=== PATIENT | male | born 1990 | race Two or more races ===

== ENCOUNTER 2020-10-01 22:33 | Emergency (ER) | payer BC ==
--- NOTE | 2020-10-01 23:12 | EDM.PDOC ---
ED HPI GENERAL MEDICAL PROBLEM - General Chief Complaint: Chest Pain Stated Complaint: CHEST PAIN Time Seen by Provider: 10/01/20 22:35 Source of Information: Reports: Patient History Limitations: Reports: No Limitations - History of Present Illness INITIAL COMMENTS - FREE TEXT/NARRATIVE: Patient is a 30-year-old male who presents today for sensation in his chest that been present for the past few years. Patient dates that he started on oral rake around the time and he moved in [place] not follow with a doctor in the past 2 to 3 years. States occasionally gets these funny sensation in his chest and his left arm denies having any rashes. Patient denies any shortness of breath fever chills nausea vomiting. - Related Data Allergies Allergy/AdvReac Type Severity Reaction Status Date / Time No Known Allergies Allergy Verified 10/01/20 22:38 Home Meds: Home Meds . [No Known Home Meds] 10/01/20 [History] Past Medical History - Past Health History Medical/Surgical History: Denies Medical/Surgical History Social & Family History - Tobacco Use Tobacco Use Status *Q: Never Tobacco User - Recreational Drug Use Recreational Drug Use: No ED ROS GENERAL - Review of Systems Review Of Systems: See Below Constitutional: Reports: No Symptoms HEENT: Reports: No Symptoms Respiratory: Reports: No Symptoms Cardiovascular: Reports: Chest Pain Endocrine: Reports: No Symptoms GI/Abdominal: Reports: No Symptoms : Reports: No Symptoms Musculoskeletal: Reports: No Symptoms Skin: Reports: No Symptoms Neurological: Reports: No Symptoms Psychiatric: Reports: No Symptoms Hematologic/Lymphatic: Reports: No Symptoms Immunologic: Reports: No Symptoms ED EXAM, GENERAL - Physical Exam Exam: See Below Exam Limited By: No Limitations General Appearance: Alert, WD/WN, No Apparent Distress Eye Exam: Bilateral Eye: EOMI, PERRL Head: Atraumatic Neck: Normal Inspection, Supple, Non-Tender Respiratory/Chest: No Respiratory Distress, Lungs Clear, Normal Breath Sounds Cardiovascular: Normal Peripheral Pulses, Regular Rate, Rhythm, No Edema GI/Abdominal: Normal Bowel Sounds, Soft, Non-Tender Extremities: Normal Inspection, Normal Range of Motion Neurological: Alert, Oriented, CN II-XII Intact, Normal Cognition, Normal Gait #1 Interpretation EKG Date: 10/01/20 Time: 10:36 Rhythm: Other (sinus tachy) Rate (Beats/Min): 115 ST-T: Normal Course - Vital Signs Last Recorded V/S: Last Vital Signs Temp 97 F 10/01/20 22:36 Pulse 122 H 10/01/20 22:36 Resp 20 10/01/20 22:36 BP 128/80 10/01/20 22:36 Pulse Ox 100 10/01/20 22:36 - Orders/Labs/Meds Orders: Active Orders 24 hr Category Date Time Status EKG Documentation Completion [RC] STAT Care 10/01/20 22:36 Active DRUG SCREEN, URINE [URCHEM] Stat Lab 10/01/20 22:36 Ordered Labs: Laboratory Tests 10/01/20 10/01/20 Range/Units 22:48 22:48 WBC 11.60 H (4.0-11.0) K/uL RBC 5.21 (4.50-5.90) M/uL Hgb 16.1 (13.0-17.0) g/dL Hct 46.5 (38.0-50.0) % MCV 89.3 (80.0-98.0) fL MCH 30.9 (27.0-32.0) pg MCHC 34.6 (31.0-37.0) g/dL RDW Std Deviation 42.3 (28.0-62.0) fl RDW Coeff of Jany 13 (11.0-15.0) % Plt Count 262 (150-400) K/uL MPV 9.80 (7.40-12.00) fL Neut % (Auto) 58.9 (48.0-80.0) % Lymph % (Auto) 30.2 (16.0-40.0) % Antelope % (Auto) 10.0 (0.0-15.0) % Eos % (Auto) 0.7 (0.0-7.0) % Baso % (Auto) 0.2 (0.0-1.5) % Neut # (Auto) 6.8 H (1.4-5.7) K/uL Lymph # (Auto) 3.5 H (0.6-2.4) K/uL Antelope # (Auto) 1.2 H (0.0-0.8) K/uL Eos # (Auto) 0.1 (0.0-0.7) K/uL Baso # (Auto) 0.0 (0.0-0.1) K/uL Sodium 138 (136-148) mmol/L Potassium 3.3 L (3.5-5.1) mmol/L Chloride 103 (98-107) mmol/L Carbon Dioxide 28.2 (21.0-32.0) mmol/L BUN 14 (7.0-18.0) mg/dL Creatinine 0.8 (0.8-1.3) mg/dL Est Cr Clr Drug Dosing TNP Estimated GFR (MDRD) > 60.0 ml/min Glucose 121 H (74-106) mg/dL Calcium 8.3 L (8.5-10.1) mg/dL Total Bilirubin 0.5 (0.2-1.0) mg/dL AST 49 H (15-37) IU/L ALT 83 H (14-63) IU/L Alkaline Phosphatase 83 (46-116) U/L Troponin I < 0.050 (0.000-0.056) ng/mL Total Protein 7.9 (6.4-8.2) g/dL Albumin 3.8 (3.4-5.0) g/dL Globulin 4.1 H (2.6-4.0) g/dL Albumin/Globulin Ratio 0.9 (0.9-1.6) - Re-Assessments/Exams Free Text/Narrative Re-Assessment/Exam: 10/01/20 23:48 EKG labs reviewed. Patient will be given a primary care physician as he wants to follow-up more regularly. Departure - Departure Time of Disposition: 23:48 Disposition: Home, Self-Care 01 Condition: Good Clinical Impression: Chest pain Instructions: Nonspecific Chest Pain, Adult, [id number] Forms: ED Department Discharge Additional Instructions: The following information is given to patients seen in the emergency department who are being discharged to home. This information is to outline your options for follow-up care. We provide all patients seen in our emergency department with a follow-up referral. The need for follow-up, as well as the timing and circumstances, are variable depending upon the specifics of your emergency department visit. If you don't have a primary care physician on staff, we will provide you with a referral. We always advise you to contact your personal physician following an emergency department visit to inform them of the circumstance of the visit and for follow-up with them and/or the need for any referrals to a consulting specialist. The emergency department will also refer you to a specialist when appropriate. This referral assures that you have the opportunity for follow-up care with a specialist. All of these measure are taken in an effort to provide you with optimal care, which includes your follow-up. Under all circumstances we always encourage you to contact your private physician who remains a resource for coordinating your care. When calling for fo llow-up care, please make the office aware that this follow-up is from your recent emergency room visit. If for any reason you are refused follow-up, please contact the [facility] Emergency Department at and asked to speak to the emergency department charge nurse. Please follow up with your primary care physician. If you do not have a primary care physician, see below: [facility] [address] [place] [id number] [address] [facility] [address] [place] [address] You were seen today for chest pains use has been present for almost a year now. We did EKG x-rays and labs to make sure your heart was okay. Was within normal limits. We recommend that you follow with a primary care physician. Above our numbers of clinics that you can call to obtain follow-up. You have any other concerning signs or symptoms please return to ED. Sepsis Event Note (ED) - Evaluation Sepsis Screening Result: No Definite Risk - Focused Exam Vital Signs: Vital Signs Temp Pulse Resp BP Pulse Ox 10/01/20 22:36 97 F 122 H 20 128/80 100 - My Orders Last 24 Hours: My Active Orders 10/01/20 22:36 EKG Documentation Completion [RC] STAT DRUG SCREEN, URINE [URCHEM] Stat - Assessment/Plan Last 24 Hours: My Active Orders 10/01/20 22:36 EKG Documentation Completion [RC] STAT DRUG SCREEN, URINE [URCHEM] Stat Plan: Patient is a 30-year-old male who presents today for chest pain. Patient has pain for the past few years. Patient slight tachycardia but has no signs of ischemia on EKG. Will obtain troponins x-ray and reassess patient.
[2020-10-01 23:16] LABS: BLOOD UREA NITROGEN,BUN 14 mg/dL (7.0-18.0); CARBON DIOXIDE,CO2 28.2 mmol/L (21.0-32.0); CHLORIDE,CL 103 mmol/L (98-107); GLUCOSE RANDOM 121 mg/dL (74-106); POTASSIUM,K 3.3 mmol/L (3.5-5.1); SODIUM,NA 138 mmol/L (136-148)
--- NOTE | 2020-10-01 23:25 | CR ---
INDICATION: Chest pain. COMPARISON: None available. FINDINGS: PA and lateral views of the chest were obtained. The lungs are clear. No focal or diffuse infiltrates are present. There is no sign of pneumothorax or abnormality of the ribs to correlate with the history of chest pain. The heart is normal in size. The mediastinum is normal in appearance. The osseous structures are normal in appearance for the patient`s age. IMPRESSION: Normal chest 2 views. Dictated by Tripp Adams MD @ 10/01/2020 11:24:[address] Tripp Adams @ Oct 01 2020 11:24PM
== END 2020-10-02 | disposition home or self-care (01) ==
LOC: MW.ED 22:33
DX: R07.9 Chest pain, unspecified (principal); R00.0 Tachycardia, unspecified
CPT/HCPCS: 36415; 71046; 71046-26; 80053; 84484; 85025; 93005; 93010; 99283; 99285-25

== ENCOUNTER 2020-11-20 17:34 | Emergency (ER) | payer BC ==
[2020-11-20] MEDS ORDERED: Hydrocortisone 1% Crm 30 GM Tube TOP ONE (17:44)
--- NOTE | 2020-11-20 17:53 | EDM.PDOC ---
ED HPI GENERAL MEDICAL PROBLEM - General Chief Complaint: Skin Complaint Stated Complaint: COVID POSITIVE, RASH ON LEG Time Seen by Provider: 11/20/20 17:34 Source of Information: Reports: Patient History Limitations: Reports: No Limitations - History of Present Illness INITIAL COMMENTS - FREE TEXT/NARRATIVE: HISTORY AND PHYSICAL: History of present illness: Patient is a 30-year-old male who presents to the emergency room with concerns of a rash to his lower extremities bilaterally. Patient states that he was diagnosed with COVID-19 and has been on quarantine over the past 6 days. Yesterday he noticed a rash to his posterior calves bilaterally which has not gone away today. He states when he first noticed it it was slightly itchy but now has no symptoms related to the rash. Patient denies any fever, chills, headache, change in vision, syncope or near syncope. Denies any chest pain, back pain, shortness of breath or cough. Denies any abdominal pain, nausea, vomiting, diarrhea, constipation or dysuria. Has not noted any blood in urine or stool. Patient has been eating and drinking appropriately. Review of systems: As per history of present illness and below otherwise all systems reviewed and negative. Past medical history: As per history of present illness and as reviewed below otherwise noncontributory. Surgical history: As per history of present illness and as reviewed below otherwise noncontributory. Social history: See social history for further information Family history: As per history of present illness and as reviewed below otherwise noncontributory. Physical exam: General: Well developed and well nourished 30-year-old male. Alert and orientated x 3. Nontoxic in appearance and in no acute distress. Vital signs are stable and have been reviewed by me. Nursing notes were reviewed. HEENT: Atraumatic, normocephalic, pupils equal and reactive bilaterally, negative for conjunctival pallor or scleral icterus, mucous membranes moist, trachea midline. No drooling or trismus noted. No meningeal signs. No hot potato voice noted. Lungs: Clear to auscultation bilaterally. No wheezes, rales, or rhonchi. Chest nontender. Normal work of breathing, no accessory muscles used. Heart: S1S2, regular rate and rhythm. No peripheral edema Abdomen: Soft, nondistended, nontender. Negative for masses or costovertebral tenderness. Skin: Small red raised bumps to bilateral posterior calf (blistering appearing/not fluid filled). Remaining skin is intact, warm, dry. No lesions noted. Hematologic: No petechiae or purpra. Mucosa appropriate color and normal nail bed color and refill. Extremities: Atraumatic, moves all extremities per self without difficulty or deficits, negative for cords or calf pain. Neurovascular unremarkable. Neuro: Awake, alert, oriented. Cranial nerves II through XII unremarkable. Cerebellum unremarkable. Motor and sensory unremarkable throughout. Exam nonfocal. Psychiatric: Mood and affect are appropriate. Normal thought process. Answering questions appropriately. Notes: *This patient was seen and evaluated during the 2019 SARS-CoV-2 novel coronavirus pandemic period. Community viral transmission is ongoing at time of this encounter and the emergency department is operating under pandemic response procedures. Patient has a nontoxic appearing rash to his posterior calves bilaterally. Starts above the sock line and ends right where his shorts begin. This does not extend to where the clothing is noted and is only to the posterior calves. Does appear to be a heat rash or atopic dermatitis. He was recently diagnosed with COVID-19 although he has been able to care for himself adequately at home. He has no concerns of his respiratory/cardiovascular health (no complaints). I have talked with the patient about today's findings, in addition to providing specific details for plan of care. Reassessment at the time of disposition demonstrates that the patient is in no acute distress. The patient is stable for discharge, counseling was provided and we discussed in great detail signs and symptoms that would prompt them to return to the Emergency Department. Medication, follow up and supportive care measures were reviewed and discussed. Voices understanding and is agreeable to plan of care. Denies any further questions or concerns at this time. Diagnostics: None Therapeutics: Hydrocortisone Prescription: Hydrocortisone 2.5% Impression: Dermatitis Plan: 1. You were evaluated today on an emergent basis. Your rash does not appear systemic, meaning requiring any oral medications to treat. Keep the skin clean and dry, wash gently with soap and water. Use the steroid cream twice daily as needed. 2. You can alternate Tylenol and ibuprofen as needed for pain and fever ma nagement. 3. We encourage you to follow up with your primary care provider and/or recommended specialist in the next few days for re-evaluation and further care/management. 4. If your symptoms should worsen, new symptoms develop or any of the signs and symptoms we discussed should arise please return to the emergency room or call 911 (if needed). Definitive disposition and diagnosis as appropriate pending reevaluation and review of above. - Related Data Allergies Allergy/AdvReac Type Severity Reaction Status Date / Time No Known Allergies Allergy Verified 11/20/20 17:49 Home Meds: Home Meds . [No Known Home Meds] 10/01/20 [History] Past Medical History - Past Health History Medical/Surgical History: Denies Medical/Surgical History ED ROS GENERAL - Review of Systems Review Of Systems: Comprehensive ROS is negative, except as noted in HPI. ED EXAM, SKIN/RASH Exam: See Below (See dictation) Course - Vital Signs Last Recorded V/S: Last Vital Signs Temp 97.5 F 11/20/20 17:49 Pulse 99 11/20/20 18:00 Resp 20 11/20/20 18:00 BP 142/84 H 11/20/20 18:00 Pulse Ox 95 11/20/20 18:00 - Orders/Labs/Meds Meds: Medications Discontinued Medications Generic Name Dose Route Start Last Admin Trade Name Freq PRN Reason Stop Dose Admin Hydrocortisone 1 gm 11/20/20 17:44 11/20/20 17:52 Hydrocortisone 1% Crm 30 Gm Tube TOP 11/20/20 17:45 1 applic ONETIME ONE Administration Departure - Departure Time of Disposition: 17:53 Disposition: Home, Self-Care 01 Clinical Impression: Dermatitis - Discharge Information Instructions: Contact Dermatitis, [id number] Referrals: PCP,None [Primary Care Provider] - Forms: ED Department Discharge Additional Instructions: The following information is given to patients seen in the emergency department who are being discharged to home. This information is to outline your options for follow-up care. We provide all patients seen in our emergency department with a follow-up referral. The need for follow-up, as well as the timing and circumstances, are variable depending upon the specifics of your emergency department visit. If you don't have a primary care physician on staff, we will provide you with a referral. We always advise you to contact your personal physician following an emergency department visit to inform them of the circumstance of the visit and for follow-up with them and/or the need for any referrals to a consulting specialist. The emergency department will also refer you to a specialist when appropriate. This referral assures that you have the opportunity for follow-up care with a specialist. All of these measure are taken in an effort to provide you with optimal care, which includes your follow-up. Under all circumstances we always encourage you to contact your private physician who remains a resource for coordinating your care. When calling for follow-up care, please make the office aware that this follow-up is from your recent emergency room visit. If for any reason you are refused follow-up, please contact the [facility] Emergency Department at and asked to speak to the emergency department charge nurse. [facility] [address] [place] [address] [id number] [address] [address] Thank you for choosing the [facility] emergency department in [place] for your medical needs today. It was a pleasure caring for you. Today you were seen in the emergency department for skin rash. 1. You were evaluated today on an emergent basis. Your rash does not appear systemic, meaning requiring any oral medications to treat. Keep the skin clean and dry, wash gently with soap and water. Use the steroid cream twice daily as needed. 2. You can alternate Tylenol and ibuprofen as needed for pain and fever management. 3. We encourage you to follow up with your primary care provider and/or recommended specialist in the next few days for re-evaluation and further care/management. 4. If your symptoms should worsen, new symptoms develop or any of the signs and symptoms we discussed should arise please return to the emergency room or call 911 (if needed). Sepsis Event Note (ED) - Focused Exam Vital Signs: Vital Signs Temp Pulse Resp BP Pulse Ox 11/20/20 18:00 99 20 142/84 H 95 11/20/20 17:49 97.5 F 120 H 18 145/89 H 95
== END 2020-11-20 18:04 | disposition home or self-care (01) ==
LOC: MW.ED 17:34
DX: L30.9 Dermatitis, unspecified (principal); U07.1 COVID-19
CPT/HCPCS: 99282; A9270